=== PATIENT | female | born 1950 | race Caucasian/White ===

== ENCOUNTER 2016-12-10 18:51 | Emergency (ER) | payer MEDICARE ==
[~2016-12-10] VITALS: Ht 170.2 cm; Wt 81.0 kg
[2016-12-10 18:55] VITALS: BP 137/84
[2016-12-10] MEDS ORDERED: LIDOCAINE 1%, 20ML SQ ONE (19:30)
[2016-12-10] MEDS ORDERED: DIPH,PERTUSS(ACELL),TET VAC/PF 0.5 ML IM-VACC ONE ×2 (19:30→19:34)
[2016-12-10] MEDS ORDERED: LIDOCAINE 1%, 20ML ONE (19:34)
[2016-12-10] MEDS ORDERED: BACITRACIN ZINC OINT 500U/GM, 0.9 GM ONE (20:36)
== END 2016-12-10 21:13 | disposition home or self-care (01) ==
LOC: ED 21:10
DX: S81.812A Laceration without foreign body, left lower leg, initial encounter (principal); I10 Essential (primary) hypertension; W01.0XXA Fall on same level from slipping, tripping and stumbling without subsequent striking against object, initial encounter; Y93.01 Activity, walking, marching and hiking; Y92.828 Other wilderness area as the place of occurrence of the external cause; Y99.9 Unspecified external cause status
CPT/HCPCS: 12004; 73590; 90471; 90715; 99284; J3490